=== PATIENT | male | born 1940 | race Caucasian/White ===

== ENCOUNTER → 2017-03-25 | Day surgery (SDC) | payer MEDICARE, BC ==
[~2017-03-25] MED LIST: ARTHRITIS PILL PO; ASPIRIN PO; ATARAX PO; BACTRIM DS TABL1 TA1 PO; CRANBERRY+ SOFT1 CAP PO; FISH OIL 1,0001 EACH PO; FLAGYL PO; FLOMAX0.4 M1; FLOMAX0.4 M1 PO; FLOMAX0.4 MG PO; LISINOPRIL PO; LOPRESSOR PO; NEXIUM PO; NIACIN PO; NIACIN500 M2 PO; NITROGYLCERIN SUBLINGUAL; NO MEDICATIONS; NORCO 7.5-3251 EACH PO; OMEPRAZOLE40 MG PO; PERCOCET5/325 PO; PRINIVIL20 M1 PO; PROSCAR5 MG PO; PROTONIX PO; SAW PALMETTO CA1 CAP PO; SELENIUM100 MCG PO; VESICARE5 MG PO; VOLTAREN75 MG PO; ZOCOR PO; [UNRECOGNIZED DRUG - OTHER] PO
--- NOTE | ~2017-03-25 | OR ---
Unit #: [id number] #: [id number] Patient: SUZANNE GUILLERMO [id number] [facility] [address]. [place], [place] [address] [id number] O MR#: [id number] NAME: SUZANNE GUILLERMO ROOM: Date of Procedure: 03/25/2017 Admission Date: 03/25/2017 Surgeon: Jayce Da Silva M.D. : 1940 Attending Physician: Jayce Da Silva M.D. Referring Physician: Jayce Da Silva M.D. Primary Care Physician: Giselle Razo M.D. OPERATIVE REPORT PREOPERATIVE DIAGNOSES History of adenomatous polyps of colon and the possibility of a gastric mass, history of anemia. POSTOPERATIVE DIAGNOSES Eugc-fj-cwjqhvis gastritis and sigmoid diverticulosis. PROCEDURES PERFORMED Esophagogastroduodenoscopy with biopsy x2 and colonoscopy to cecum. ANESTHESIA Monitored anesthesia. INDICATIONS FOR PROCEDURE Mr. Guillermo is a pleasant 77-year-old gentleman, who has a history of adenomatous polyps of the colon, is due for surveillance colonoscopy. His previous endoscopist was Dr. Garcia, who has retired. By history, there was some question of a mass on an upper endoscopy and the patient was supposed to follow up, but never did before Dr. Garcia retired. He is now referred and even though he is currently asymptomatic. He has had a history of anemia, so in addition to his colon surveillance, I plan on doing an upper endoscopy to answer the question if in fact there was a mass. DESCRIPTION OF PROCEDURE The patient was admitted to [facility], positively identified and transported to endoscopy unit. After appropriate monitoring and positioning, a bite block was placed and he was sedated by the anesthesiologist. The endoscope was passed through the oral cavity and in the esophagus. Under direct vision, we passed through the esophagus into the stomach, insufflated the stomach, and passed through the pylorus down to the third portion of duodenum. In the second portion of the duodenum, there was an isolated erythematous spot in the mucosa. It did not really look like a polyp, but I could not say for sure that it was not a developing polyp. The area was biopsied to make certain it could have all of just been some irritation. The rest of the duodenum was entirely normal. In the stomach, he did have mild to moderate gastritis and a biopsy for KIRILL testing was taken. On careful evaluation of all mucosal surfaces in both the antegrade and retrograde visualization of the stomach from the cardia to the pylorus, I could not identify any mass or polyp. The GE junction was well demarcated at 40 cm. There was no esophagitis, no hiatal hernia, and no Braxton mucosa. The esophageal Unit #: [id number] #: [id number] Patient: SUZANNE GUILLERMO J mucosa was normal and the larynx was normal as far as I could see it. He did have a little bit of obstruction of view of all of the vocal cords from the arytenoid cartilages. After completion of the upper scope, the patient was repositioned. On rectal exam, there were no palpable abnormalities. On digital examination, the prostate was within normal limits and he did not have any anorectal pathology. Colonoscope was passed through the anal verge throughout the extent of the colon to the cecum, where the appendiceal orifice and ileocecal valve were photo-documented. On antegrade and retrograde visualization, he had moderate to severe sigmoid diverticulosis, but he had no polyps throughout his colon. The patient tolerated the procedure well and transported to recovery in stable condition. I plan on calling the patient with the results of the biopsies and recommending followup at that time. I have discussed the findings with his . High-fiber diet was recommended. This patient was originally scheduled at 7:00 a.m., but was not done until 11:00 am. This morning, when he first was brought into the endoscopy unit, he was put on the monitor. He was noted to have a heart rate in the 30s, even though he was awake, and alert, asymptomatic and his blood pressure was normal. A complete lab evaluation was done and a 12-lead EKG was obtained and Cardiology was asked to see the patient. They did an echocardiogram and said that his ejection fraction was 60% and cleared him to proceed with his endoscopy since he had already gone through the bowel prep. The patient does have a customer associate, Dr. Sumanth Nur. We are going to fax all these results to Dr. Nur and asked the patient to follow up with Dr. Nur for further evaluation and treatment as appropriate. Again, the patient's heart rate currently is in the 60s and 70s and he is completely asymptomatic. Dictated by... Carmela Adame/sarah beth TD: 03/25/2017 12:31 JOB #: [id number] OPERATIVE REPORT Page 1 of 1 X Jayce Da Silva MD X PROCEDURE OPERATIVE NOTE
--- NOTE | ~2017-03-25 | CO ---
Unit #: [id number] #: [id number] Patient: SUZANNE OSORIO [id number] [address] [place], [place] [address] [id number] O MR#: [id number] NAME: SUZANNE OSORIO. ROOM: Age: 77 Sex: M Admission Date: 03/25/2017 : 1940 Attending Physician: Jayce Da Silva M.D. Primary Care Physician: Giselle Razo M.D. CONSULTATION REPORT REASON FOR CONSULTATION Bradycardia. HISTORY OF PRESENT ILLNESS This is a pleasant 77-year-old, male with history of hypertension, prostate cancer, colon polyps, obstructive sleep apnea, and gastroesophageal reflux disease. The patient was here today for a scheduled upper and lower endoscopy per Dr. Dunlap. Apparently had a transient episode of bradycardia with heart rate in the 30s; however, have no strips for further review of this. Blood pressure is okay. He is essentially asymptomatic. Blood pressure was 133/62. They have asked Cardiology to come and see and evaluate secondary to this reason. That is the reason for consult. He is currently being seen and evaluated in the endoscopy area. He denies any complaints of chest pain, palpitations, dizziness, syncope or near syncopal episodes. He does state tat he had a stress test two to three years ago and was told it was normal. The patient typically follows with Dr. Nur. A stat EKG was performed, which showed sinus rhythm with frequent premature ventricular contractions with rate of 73 beats per minute. QTc interval of 425 milliseconds. Stat cardiac enzymes were ordered. At present, he is conversing. His is at bedside. He again is completely free of any symptoms. PAST MEDICAL HISTORY 1. Hypertension. 2. Prostate cancer. 3. Degenerative joint disease. 4. Osteoarthritis. 5. Gastroesophageal reflux disease. 6. Obstructive sleep apnea. PAST SURGICAL HISTORY Hernia surgery, ruptured ulcer surgery in 1971, left hand surgery in 1991, multiple colonoscopy and endoscopies. MEDICATIONS Home medications, 1. Niacin 500 mg p.o. daily. 2. Prinivil 20 mg p.o. at bedtime. 3. Flomax 0.4 mg at bedtime. ALLERGIES Unit #: [id number] #: [id number] Patient: SUZANNE OSORIO. SOCIAL HISTORY He is a nonsmoker. Denies illicit drugs or alcohol. FAMILY HISTORY Negative for coronary artery disease. REVIEW OF SYSTEMS Negative except for what is stated above in the HPI. PHYSICAL EXAMINATION VITAL SIGNS: Afebrile. Pulse is currently in the 70s, respiratory rate 16 to 18, pulse 148/92, BMI 31. GENERAL: This is a very pleasant, 77-year-old, male, in no acute distress. HEENT: Head is atraumatic and normocephalic. Pupils are equal and round. NECK: Trachea is midline. No lymphadenopathy. No thyromegaly. No JVD. Carotid upstrokes are normal. CARDIOVASCULAR: S1, and S2. No murmurs, gallops, or rubs. CHEST: Clear to auscultation. No adventitious breath sounds. No rales, no rhonchi, no wheezes. ABDOMEN: Obese, soft, nontender, and nondistended. Bowel sounds are present. EXTREMITIES: Pulses are palpable. No clubbing, cyanosis, or edema. NEUROLOGIC: He is awake, alert, and oriented. He follows commands. He moves all extremities with ease. LABORATORY DATA His laboratory results are currently pending. EKG shows sinus rhythm with frequent premature ventricular contractions, rate of 73 beats per minute. QTc interval 425 milliseconds. No acute ischemic changes noted. ASSESSMENT 1. Sinus bradycardia. 2. Hypertension. 3. History of prostate cancer. 4. Negative stress test two to three years ago, reportedly normal per patient. 5. The patient is here for scheduled upper and lower endoscopy. He apparently had a transient episode of sinus bradycardia, and I do not have strips for documentation. He is completely asymptomatic. Blood pressure is stable. Stat EKG has been ordered, which shows normal sinus rhythm with rate of 73 beats per minute. Frequent premature ventricular contractions. QTc interval 425 milliseconds. No acute ischemic changes noted. He also appears to have some aberrant conduction. A stat 2D echo was ordered, which showed an ejection fraction of 60%, the patient is very active and has no cardiac limiting symptoms. We will check a TSH and a mag level. If his heart rate stays below 50, it is okay to start dopamine drip. Dr. Goldman says it is okay for the patient to undergo surgery to moderate, but acceptable risk. 6. If his rhythm remained stable, EKG results have been reviewed and shows no acute ischemia and the patient will be discharged later today with a Holter monitor placed prior to discharge. All his results will be faxed to Dr. Sumanth Nur and he will follow up with Dr. Nur's office. Unit #: [id number] #: [id number] Patient: SUZANNE OSORIO Dictated by... Connor Monteiro/sarah beth TD: 03/26/2017 04:11 JOB #: [id number] CONSULTATION REPORT Page 1 of 1 X Olga Castellanos APRN X CONSULTATION REPORT
--- NOTE | ~2017-03-25 | EKG ---
PATIENT: SUZANNE OSORIO UNIT #: [id number] Ventricular Rate: 73 BPM Atrial Rate: 61 BPM P-R Interval: 180 ms QRS Duration: 84 ms Q-T Interval: 386 ms QTC Calculation(Bezet): 425 ms P Grapeview: 27 degrees Calculated R Grapeview: -2 degrees Calculated T Grapeview: 30 degrees Diagnosis Line: Sinus rhythm with frequent and consecutive Diagnosis Line: Premature ventricular complexes Diagnosis Line: Abnormal ECG Diagnosis Line: When compared with ECG of 03-APR-2010 06:32, Diagnosis Line: Premature ventricular complexes are now Present Diagnosis Line: Confirmed by DELMAR FERNANDEZ MD ([id number]) on Diagnosis Line: 03/25/2017 2:46:26 PM INTERPRETING MD: JIM WRIGHT
--- NOTE | ~2017-03-25 | HM ---
Unit #: [id number] #: [id number] Patient: SUZANNE OSORIO [id number] [facility]. [place] [address] [place], [place] [address] [id number] O MR#: [id number] NAME: SUZANNE OSORIO. : 1940 SEX: M STUDY DATE/TIME: 04/02/2017 UNIT: MOLD TOOLING TECHNICIAN ROOM: STUDY DESCRIPTION: Holter Monitor Attending Physician: Jayce Da iSlva M.D. Referring Physician: Jayce Da Silva M.D. Primary Care Physician: Giselle Razo M.D. CARDIOLOGY REPORT EXAM 24-hour Holter report DATE APPLIED 03/25/17 DATE SCANNED 04/01/[address] Jayce Da Silva READ BY Kemi Goldman M.D REASON FOR THE STUDY Bradycardia FINDINGS Underlying rhythm is sinus rhythm with an average heart rate of 65 beats per minute, minimum heart rate of 50 beats per minute and a maximum heart rate of 100 beats per minute. The minimum heart rate of 50 beats per minute is noted at 12:42 a.m. The maximum heart rate of 100 beats per minute is noted at 10:54 a.m. The patient had a 2.12 second pause noted at 5:29 a.m. The patient had 22,799 single multifocal premature ventricular complex, 822 ventricular complex and 13,477 ventricular bigeminy noted. The patient had 3-beat run of ventricular tachycardia with heart rate ranging from 100 to 130 beats per minute. The patient had 45 single premature atrial complex and 3-beat run of paroxysmal supraventricular tachycardia noted. The patient did not record any symptoms. CONCLUSION 1. Underlying rhythm is sinus rhythm with an average heart rate of 65 beats per minute, minimum heart rate of 50 beats per minute and a maximum heart rate of 100 beats per minute. 2. No sustained atrial or ventricular arrhythmias noted. 3. Longest pause noted was a 2.12 second pause noted at 5:29 a.m. 4. Extremely frequent single multifocal premature ventricular complex, extremely frequent ventricular couplet and ventricular bigeminy noted. 5. Occasional single premature atrial complex noted. 6. The patient did not record any symptoms. Unit #: [id number] #: [id number] Patient: SUZANNE OSORIO Dictated by... Carmela Suazo/madhu TD: 04/02/2017 15:30 JOB #: [id number] CARDIOLOGY REPORT Page 1 of 1 X Kemi Goldman MD <ELECTRONICALLY SIGNED> 05/19/17 1524 HOLTER MONITOR REPORT
[2017-03-25 07:37] LABS: BASOPHIL% 0.6 % (0-2.5); EOSINOPHIL# 0.1 X10e3 (0-0.7); EOSINOPHIL% 1.5 % (0.0-7.0); HEMATOCRIT 40.8 % (38.0-50.0); HEMOGLOBIN 13.9 gm/dL (13.0-16.0); LYMPHOCYTE% 18.1 % (17.0-45.0); MEAN CELL VOLUME 91.7 FL (83-96); MEAN CORPUSCULAR HEMOGLOBIN 31.3 PG (28-34); MEAN CORPUSCULAR HGB CONC 34.1 g/dL (30-36); MEAN PLATELET VOLUME 7.9 FL (6.5-11.5); MONOCYTE# 0.6 X10e3 (0-1.0); MONOCYTE% 10.4 % (3.0-12.0); NEUTROPHIL# 3.8 X10e3 (1.5-7.1); NEUTROPHIL% 69.4 % (40-75); PLATELET COUNT 139 X10e3 (140-420); RED BLOOD COUNT 4.45 X10e (3.90-5.60); WHITE BLOOD COUNT 5.5 X10e3 (4.0-10.5)
[2017-03-25 07:39] LABS: DIFF IND NO
[2017-03-25 08:16] LABS: BUN/CREATININE RATIO 15.55; CALCIUM SERUM 8.4 mg/dL (8.4-10.2); CREATININE SERUM 0.9 mg/dL (0.6-1.4); GLOM FILT RATE Estimated 80.9 mL/min (>60); POTASSIUM 4.2 mmol/L (3.5-5.1)
[2017-03-25 08:51] LABS: %MB 3.6 % (0.0-4.0); MB 4.3 ng/ml
== END | disposition home or self-care (01) ==
LOC: COPS 05:56
PROVIDERS: Specialist
DX: Z12.11 Encounter for screening for malignant neoplasm of colon (principal); K29.70 Gastritis, unspecified, without bleeding; K57.30 Diverticulosis of large intestine without perforation or abscess without bleeding; N40.0 Benign prostatic hyperplasia without lower urinary tract symptoms; I10 Essential (primary) hypertension; M19.90 Unspecified osteoarthritis, unspecified site; G47.33 Obstructive sleep apnea (adult) (pediatric); E53.8 Deficiency of other specified B group vitamins; Z79.899 Other long term (current) drug therapy; Z85.46 Personal history of malignant neoplasm of prostate; Z86.010 Personal history of colon polyps; Z88.1 Allergy status to other antibiotic agents; Z96.653 Presence of artificial knee joint, bilateral; Z98.890 Other specified postprocedural states
CPT/HCPCS: 43239; G0105; 80048; 82550; 82553; 83735; 84443; 84484; 85025; 87077; 88305; 93005; 93225; 93226; 93306